=== PATIENT | female | born 1955 | race Caucasian/White ===

== ENCOUNTER → 2018-12-21 | Outpatient (CLI) | payer BC, MEDICARE ==
--- NOTE | 2018-12-21 19:57 | ECHOF ---
Referral Reason:R51 Headache, R47.01 Aphasia, G45.8 Subclavian MEASUREMENTS -------- HEIGHT: 170.2 cm WEIGHT: 81.6 kg BP: RVIDd: 3.1 cm (< 3.3) IVSd: 0.8 cm (0.6 - 1.1) LVIDd: 4.5 cm (3.9 - 5.3) LVPWd: 1.3 cm (0.6 - 1.1) IVSs: 1.6 cm LVIDs: 2.7 cm LVPWs: 1.0 cm LA Diam: 3.2 cm (2.7 - 3.8) LAESV Index (A-L): 20.24 ml/m Ao Diam: 2.8 cm (2.0 - 3.7) AV Cusp: 1.7 cm (1.5 - 2.6) LA Diam: 3.4 cm (2.7 - 3.8) MV EXCURSION: 18.438 mm (> 18.000) MV EF SLOPE: 92 mm/s (70 - 150) EPSS: 0.5 cm MV E Jesus: 0.50 m/s MV DecT: 243 ms MV A Jesus: 0.82 m/s MV E/A Ratio: 0.60 RAP: 5.00 mmHg RVSP: 14.95 mmHg FINDINGS -------- Sinus rhythm. This was a technically good study. LV size, wall thickness and systolic function are normal, with an EF greater than 55%. The left aldair tricular size is normal. The right ventricle is normal in size. The left atrial size is normal. The right atrial size is normal. Bubble Study Done no shunt noted. The aortic valve is trileaflet, and appears structurally normal. No aortic stenosis or regurgitation. Mild mitral regurgitation is present. Mild tricuspid regurgitation present. Right ventricular systolic pressure is normal at < 35 mmHg. There is no evidence of pulmonary hypertension. There is no pulmonic regurgitation present. The aortic root size is normal. There is no pericardial effusion. CONCLUSIONS -------- 1. Sinus rhythm. 2. This was a technically good study. 3. LV size, wall thickness and systolic function are normal, with an EF greater than 55%. 4. The left ventricular size is normal. 5. The right ventricle is normal in size. 6. The left atrial size is normal. 7. The right atrial size is normal. 8. Bubble Study Done no shunt noted. 9. The aortic valve is trileaflet, and appears structurally normal. No aortic stenosis or regurgitati on. 10. Mild mitral regurgitation is present. 11. Mild tricuspid regurgitation present. 12. Right ventricular systolic pressure is normal at < 35 mmHg. 13. There is no evidence of pulmonary hypertension. 14. There is no pulmonic regurgitation present. 15. The aortic root size is normal. 16. There is no pericardial effusion. CARDIOLOGY COORDINATOR: Tracie Smith RDCS
== END | disposition home or self-care (01) ==
LOC: RADECHMAIN 15:39
PROVIDERS: ATTEND Internal Medicine
DX: I08.1 Rheumatic disorders of both mitral and tricuspid valves (principal); R51 Headache; R47.01 Aphasia
CPT/HCPCS: 93306

== ENCOUNTER → 2018-12-24 | Outpatient (CLI) | payer MEDICARE ==
--- NOTE | 2018-12-25 00:36 | MR ---
EXAMINATION TYPE: MR brain wo con DATE OF EXAM: 12/24/2018 COMPARISON: HISTORY: Headaches, aphasia Standard multiplanar, multisequence MRI departmental protocol Multiplanar, multisequence images of the brain were acquired. Diffusion weighted imaging was performe d. FINDINGS: Ventricles have normal size. There is no mass effect nor midline shift. There is no sign of intracranial hemorrhage. Brainstem is intact. There is no evidence of cerebral edema. There is no ev idence of cortical infarct. Corpus callosum appears normal. Sella turcica appears normal. On the FLAIR images there are a few scattered white matter high signal foci that measure up to 4 mm i n the frontal lobes and left temporal lobe. Total number is less than 10. IMPRESSION: There are a few small scattered white matter high signal foci of uncertain significance. This could r elate to mild microvascular ischemia. Otherwise negative exam. No evidence of a cortical infarct.
== END ==
LOC: RADMRIMAIN 21:39
PROVIDERS: ATTEND Internal Medicine
DX: R94.02 Abnormal brain scan (principal)
CPT/HCPCS: 70551